=== PATIENT | male | born 1980 | race Caucasian/White ===

== ENCOUNTER 2018-02-08 07:31 | Day surgery (SDC) | payer MEDICARE, MEDICAID ==
[2018-02-02 10:45] LABS: BASOPHILS % (AUTO) 0.4 % (0-1); EOSINOPHILS # (AUTO) 0.2 X10'3 (0-0.9); EOSINOPHILS % (AUTO) 3.6 % (0-6); LYMPHOCYTES # (AUTO) 2.7 X10'3 (1.1-4.8); LYMPHOCYTES % (AUTO) 43.3 % (21-51); MEAN CORPUSCULAR HEMOGLOBIN 32.4 PG (27.0-31.0); MEAN CORPUSCULAR HGB CONC 34.3 % (33.0-36.5); MEAN CORPUSCULAR VOLUME 94.6 FL (78-98); MEAN PLATELET VOLUME 9.1 FL (7.4-10.4); MONOCYTES # (AUTO) 0.7 X10'3 (0-0.9); MONOCYTES % (AUTO) 11.7 % (2-12); NEUTROPHILS # (AUTO) 2.5 X10'3 (1.8-7.7); PRE OP HEMATOCRIT 43.6 % (42.0-52.0); PRE OP PLATELET COUNT 249 X10'3 (140-440); RED BLOOD COUNT 4.61 X10'6 (4.70-6.10); RED CELL DISTRIBUTION WIDTH 13.2 % (11.5-14.5)
[2018-02-02 10:48] LABS: CLARITY,URINE CLEAR (Clear); COLOR,URINE YELLOW (Yellow); GLUCOSE, URINE NEGATIVE (Neg); KETONES,URINE TRACE mg/dl (Neg); LEUKOCYTE ESTERASE ,URINE NEGATIVE (Neg); NITRITES, URINE NEGATIVE (Neg); OCCULT BLOOD,URINE NEGATIVE (Neg); PH,URINE 7.5 (4.8-8.0); PROTEIN,URINE NEGATIVE (Neg); UA COLLECTION TYPE CLN CATCH MIDSTREAM; UROBILINOGEN,URINE 0.2 E.U/dL (0.2-1.0)
[2018-02-02 11:00] LABS: ALBUMIN/GLOBULIN RATIO 1.1 (1.1-1.5); ALKALINE PHOSPHATASE 56 IU/L (46-116); BLOOD UREA NITROGEN 7 MG/DL (7-18); BUN/CREATININE RATIO 10.1 (5.4-32.0); CALCIUM 8.9 MG/DL (8.5-10.1); CHLORIDE 102 MMOL/L (99-107); CREATININE 0.69 MG/DL (0.60-1.10); PRE OP ALT 27 U/L (30-65); PRE OP ANION GAP 9 (8-16); PRE OP AST 18 U/L (10-37); PRE OP BILIRUB, TOTAL 0.2 MG/DL (0.0-1.0); PRE OP GLUCOSE 89 MG/DL (70-104); PRE OP POTASSIUM 4.5 MMOL/L (3.4-5.1); PRE OP SODIUM 139 MMOL/L (135-145); TOTAL CARBON DIOXIDE 28.1 MMOL/L (24-32); TOTAL PROTEIN 7.6 G/DL (6.4-8.2); eGFR > 90 ML/MIN
[~2018-02-08] VITALS: Ht 188 cm; Wt 95.7 kg
[2018-02-08] VITALS (8 sets, daily range): BP systolic 113–128; BP diastolic 58–85
[~2018-02-08 07:31] MED LIST: CLA10T PO; DIVA500T7 PO; EFF25T PO; ERGO500028; GABA-338 PO; IBUP-1984 PO; LEVO25TA7 PO; MELA3TAB PO; TEG100T PO; ceFAZolin inj. 2,000 MG in normal saline 100ml IV soln 100 ML IV ONE; famotidine 20mg tablet PO ONE; normal saline 1000ml 1,000 ML IV SCH
[2018-02-08] MEDS ORDERED: LIDOcaine 1% (10mg/ml) 2ml vial ONE (07:59)
[2018-02-08] MEDS ORDERED: LIDOcaine 1% 30ml preserv. free vial ONE (10:18)
[2018-02-08] MEDS ORDERED: sevoflurane 250ml liquid IH ONE (10:48)
[2018-02-08] MEDS ORDERED: fentaNYL/PF 50MCG/1 ML 2ML syringe ONE ×2 (10:51→12:28)
[2018-02-08] MEDS ORDERED: MIDAZolam 5mg/5ml vial ONE (10:51)
[2018-02-08] MEDS ORDERED: BUPIVAcaine/PF 2.5mg/ml (0.25%) 10ml vial ONE (11:06)
[2018-02-08] MEDS ORDERED: BUPIVAcaine/PF 2.5mg/ml (0.25%) 10ml vial IJ ONE (11:14)
[2018-02-08] MEDS ORDERED: LIDOcaine 1% 30ml preserv. free vial IJ ONE (11:15)
[2018-02-08] MEDS ORDERED: ringers solution, lacted 1,000 ML IV SCH (11:37)
[2018-02-08] MEDS ORDERED: ondansetron/PF 4mg/2ml inj IV PRN (11:40)
[2018-02-08] MEDS ORDERED: meperidine/PF 25mg/ml syringe IV PRN ×3 (11:40)
[2018-02-08] MEDS ORDERED: proCHLORperazine 10 MG/2 ml inj IV PRN (11:40)
[2018-02-08] MEDS ORDERED: morphine 4 MG/ML inj SYRINge IV PRN ×2 (11:40)
[2018-02-08] MEDS ORDERED: propofol inj 20 ML IV ONE (12:13)
[2018-02-08] MEDS ORDERED: ePHEDrine 50MG/ML INJ. ONE (12:13)
[2018-02-08] MEDS ORDERED: LIDOcaine 2% (20mg/ml) 5ml vial ONE (12:13)
== END 2018-02-08 12:30 | disposition home or self-care (01) ==
LOC: PAS 07:31
PROVIDERS: ATTEND Surgery
DX: D17.0 Benign lipomatous neoplasm of skin and subcutaneous tissue of head, face and neck (principal); F17.210 Nicotine dependence, cigarettes, uncomplicated; F41.8 Other specified anxiety disorders; Z79.899 Other long term (current) drug therapy
CPT/HCPCS: 21012; 36415; 80053; 81003; 85025; A6449; J0690; J2001; J2250; J2704; J3010; J3490; J7030; J7120; 88304; A7000

== ENCOUNTER 2021-03-20 08:30 | Day surgery (SDC) | payer MEDICARE, MEDICAID ==
[2021-03-13 15:57] LABS: BASOPHILS # (AUTO) 0.1 X10'3 (0-0.2); BASOPHILS % (AUTO) 1.1 % (0-1); EOSINOPHILS # (AUTO) 0.1 X10'3 (0-0.9); EOSINOPHILS % (AUTO) 1.1 % (0-6); LYMPHOCYTES # (AUTO) 3.7 X10'3 (1.1-4.8); LYMPHOCYTES % (AUTO) 50.2 % (21-51); MEAN CORPUSCULAR HEMOGLOBIN 31.4 PG (27.0-31.0); MEAN CORPUSCULAR HGB CONC 33.4 g/dL (33.0-36.5); MEAN CORPUSCULAR VOLUME 94.1 FL (78-98); MEAN PLATELET VOLUME 8.9 FL (7.4-10.4); MONOCYTES # (AUTO) 0.9 X10'3 (0-0.9); MONOCYTES % (AUTO) 11.6 % (2-12); NEUTROPHILS # (AUTO) 2.7 X10'3 (1.8-7.7); PRE OP HEMATOCRIT 46.2 % (42.0-52.0); PRE OP HEMOGLOBIN 15.4 g/dL (14.0-17.9); PRE OP PLATELET COUNT 291 X10'3 (140-440); RED BLOOD COUNT 4.91 X10'6 (4.70-6.10); RED CELL DISTRIBUTION WIDTH 13.7 % (11.5-14.5)
[2021-03-13 16:15] LABS: ALBUMIN 3.8 G/DL (3.4-5.0); ALBUMIN/GLOBULIN RATIO 0.9 (1.1-1.5); ALKALINE PHOSPHATASE 58 IU/L (46-116); BLOOD UREA NITROGEN 7 MG/DL (7-18); BUN/CREATININE RATIO 9.6 (5.4-32.0); CALCIUM 9.1 MG/DL (8.5-10.1); CHLORIDE 104 MMOL/L (99-107); CREATININE 0.73 MG/DL (0.60-1.10); PRE OP ALT 39 U/L (30-65); PRE OP ANION GAP 11 (8-16); PRE OP AST 18 U/L (10-37); PRE OP BILIRUB, TOTAL 0.2 MG/DL (0.0-1.0); PRE OP GLUCOSE 81 MG/DL (70-104); PRE OP POTASSIUM 4.3 MMOL/L (3.4-5.1); PRE OP SODIUM 144 MMOL/L (135-145); TOTAL CARBON DIOXIDE 28.9 MMOL/L (24-32); TOTAL PROTEIN 7.9 G/DL (6.4-8.2); eGFR > 90 ML/MIN
[~2021-03-20] VITALS: Ht 188 cm; Wt 103.8 kg
[2021-03-20] VITALS (8 sets, daily range): BP systolic 122–164; BP diastolic 78–93
[~2021-03-20 08:30] MED LIST changes: +CARB400T8 PO; +CHOL200016 PO; +DIVA-36 PO; +DIVA500T2 PO; -DIVA500T7 PO; -EFF25T PO; -ERGO500028; -GABA-338 PO; -IBUP-1984 PO; +IBUP-1985 PO; -MELA3TAB PO; +MELA3TAB39 PO; +NICO-669 BC; -TEG100T PO; +VENL25TA48 PO; -ceFAZolin inj. 2,000 MG in normal saline 100ml IV soln 100 ML IV ONE; +cefazolin/dext.iso 2gm/100ml IV ONE; -normal saline 1000ml 1,000 ML IV SCH; +ringers solution, lacted 1,000 ML IV SCH; +vancomycin 1,500 MG in NS 300ml IV soln IV ONE
[2021-03-20] MEDS ORDERED: BUPIVAcaine/PF 2.5 mg/ml (0.25%) 30ml vial ONE ×2 (10:26→10:45)
[2021-03-20] MEDS ORDERED: sevoflurane 250ml liquid IH ONE (10:54)
[2021-03-20] MEDS ORDERED: fentaNYL/PF 50MCG/1 ML 2ML syringe ONE (10:58)
[2021-03-20] MEDS ORDERED: midazolam 1 mg/ML 2ml injection ONE (10:58)
[2021-03-20] MEDS ORDERED: ringers solution, lacted 1,000 ML IV SCH (11:10)
[2021-03-20] MEDS ORDERED: labetalol 20mg/4ml (5mg/ml) syringe IV PRN (11:10)
[2021-03-20] MEDS ORDERED: hydrALAZINE 20mg/ml inj. IV PRN (11:10)
[2021-03-20] MEDS ORDERED: proCHLORperazine 10 MG/2 ml inj IV PRN (11:10)
[2021-03-20] MEDS ORDERED: acetaminophen 1,000mg/100ml IV 100 ML IV PRN (11:10)
[2021-03-20] MEDS ORDERED: HYDROmorphone/PF 0.2 MG/ML SYRINGE IV PRN ×2 (11:10)
[2021-03-20] MEDS ORDERED: meperidine/PF 25mg/ml syringe IV PRN (11:10)
[2021-03-20] MEDS ORDERED: morphine 2 MG/ML inj. syringe IV PRN (11:10)
[2021-03-20] MEDS ORDERED: morphine 4 MG/ML inj SYRINge IV PRN (11:10)
[2021-03-20] MEDS ORDERED: ondansetron/PF 4mg/2ml inj IV PRN (11:10)
[2021-03-20] MEDS ORDERED: dexamethasone sod phosphate 4mg/ml inj. ONE (11:14)
[2021-03-20] MEDS ORDERED: LIDOcaine 2% (20mg/ml) 5ml vial ONE (11:14)
[2021-03-20] MEDS ORDERED: ondansetron/PF 4mg/2ml inj ONE (11:14)
[2021-03-20] MEDS ORDERED: propofol inj 20 ML IV ONE (11:14)
[2021-03-20] MEDS ORDERED: ROPIVAcaine 0.5% (5mg/ml) 30ml vial ONE (12:29)
--- NOTE | 2021-03-20 12:47 | NUR ---
Received from OR via [facility] IN STABLE CONDTION , accompanied by Anesthesiologist and OR RNreport given by Anesthesihelen. Addendum: 03/20/21 at 1259 by Maritza Toro RN Amended: Links added.
--- NOTE | 2021-03-20 14:17 | NUR ---
PATIENT DISCHARGED FROM PACU IN STABLE CONDITION AFTER WRITTEN AND VERBAL DISCHARGE INSTRUCTIONS GIVEN TO PATIENT AND CAREGIVER. PATIENT AND CAREGIVER GAVE VERBAL UNDERSTANDING OF INSTRUCTIONS GIVEN. PATIENT LEFT FACILITY VIA WHEELCHAIR WITH RN. Addendum: 03/20/21 at 1433 by Maritza Toro RN Amended: Links added.
== END 2021-03-20 14:17 | disposition home or self-care (01) ==
LOC: PAS 08:30
PROVIDERS: ATTEND Orthopaedic Surgery
DX: T84.84XA Pain due to internal orthopedic prosthetic devices, implants and grafts, initial encounter (principal); M70.61 Trochanteric bursitis, right hip; F31.9 Bipolar disorder, unspecified; F41.9 Anxiety disorder, unspecified; G40.909 Epilepsy, unspecified, not intractable, without status epilepticus; E03.9 Hypothyroidism, unspecified; K21.9 Gastro-esophageal reflux disease without esophagitis; F79 Unspecified intellectual disabilities; M17.11 Unilateral primary osteoarthritis, right knee; E66.8 Other obesity; Z68.28 Body mass index [BMI] 28.0-28.9, adult; Z20.822 Contact with and (suspected) exposure to COVID-19; Z98.890 Other specified postprocedural states; Z87.891 Personal history of nicotine dependence; Z79.899 Other long term (current) drug therapy; Y83.8 Other surgical procedures as the cause of abnormal reaction of the patient, or of later complication, without mention of misadventure at the time of the procedure; Y92.89 Other specified places as the place of occurrence of the external cause
CPT/HCPCS: 20680; 27062; 36415; 73551; 76000; 80053; 82948; 85025; 93005; J0131; J1100; J2001; J2250; J2270; J2405; J2704; J3010; J3370; J3490; J7040; U0003; U0005; A4215; A4618; A6250; A6258; A6449; A7000; J2795; J7120